=== PATIENT | female | born 1965 | race Caucasian/White ===

== ENCOUNTER 2019-04-18 10:11 | Emergency (ER) | payer OTHER ==
[~2019-04-18] VITALS: Ht 157.5 cm; Wt 56.7 kg
[2019-04-18] MEDS ORDERED: ATORVASTATIN CA10 MG (10:57)
[2019-04-18] MEDS ORDERED: FOSAMAX70 MG (10:57)
== END 2019-04-18 12:22 | disposition home or self-care (01) ==
LOC: ER 10:11
DX: M25.511 Pain in right shoulder (principal); M51.36 Other intervertebral disc degeneration, lumbar region; T45.8X5A Adverse effect of other primarily systemic and hematological agents, initial encounter

== ENCOUNTER 2022-05-23 07:27 | Day surgery (SDC) | payer OTHER ==
[~2022-05-23 07:27] MED LIST: ATORVASTATIN CA10 MG; FOSAMAX70 MG
== END 2022-05-23 14:10 | disposition home or self-care (01) ==
LOC: AMB-ENDOS 07:27 → EDBD 13:30 → AMB-ENDOS 14:10
PROVIDERS: ATTEND Colon & Rectal Surgery
DX: K92.1 Melena (principal); K64.4 Residual hemorrhoidal skin tags; Z20.822 Contact with and (suspected) exposure to COVID-19; I10 Essential (primary) hypertension